=== PATIENT | male | born 1945 | race Caucasian/White ===

== ENCOUNTER → 2020-03-08 13:00 | Outpatient (BNVA) | payer MEDICARE, OTHER, SELFPAY | PROVIDERS: PCP Obstetrics & Gynecology Gynecologic Oncology; Referring Provider Obstetrics & Gynecology Gynecologic Oncology; Visit Provider Urology | DX: Z76.89 Persons encountering health services in other specified circumstances (principal) | CPT/HCPCS: Q3014 ==

== ENCOUNTER → 2021-06-13 08:26 | Outpatient (BNVA) | payer MEDICARE, OTHER, SELFPAY | PROVIDERS: PCP Obstetrics & Gynecology Gynecologic Oncology; Visit Provider Urology | DX: N40.1 Benign prostatic hyperplasia with lower urinary tract symptoms (principal); N13.8 Other obstructive and reflux uropathy; R97.20 Elevated prostate specific antigen [PSA] | CPT/HCPCS: Q3014 ==

== ENCOUNTER 2022-06-12 08:31 | Outpatient (REF) | payer MEDICARE, OTHER, SELFPAY ==
[2022-06-12 17:38] LABS: Urine Cytology See Pathology rpt
== END 2022-06-12 08:32 | disposition home or self-care (01) ==
LOC: HO.LAB 08:31
PROVIDERS: PCP Obstetrics & Gynecology Gynecologic Oncology; Visit Provider Urology
DX: N40.1 Benign prostatic hyperplasia with lower urinary tract symptoms (principal); N13.8 Other obstructive and reflux uropathy; R31.29 Other microscopic hematuria; R35.1 Nocturia; R97.20 Elevated prostate specific antigen [PSA]; Z79.899 Other long term (current) drug therapy
CPT/HCPCS: 51798; 88112; 99212

== ENCOUNTER 2023-06-15 08:32 | Outpatient (AMB) | payer MEDICARE, OTHER, SELFPAY ==
--- NOTE | 2023-06-15 08:40 | A.OFFVIS_ITS ---
Intake Intake Visit Reasons: 1Y PSA(set) Intake Note: Patient is Present for Follow Up PSA Urology Medication:Finasteride Antibiotic Allergies: None Blood Thinners: None PVR: 101 Allergies No Known Allergies Allergy (Verified 06/15/23 08:41) HPI HPI Comments History of Present Illness Details Franco is a pleasant male.? He is a patient of Dr. Garcia.? The seen for the following urologic conditions - abnormal SHEREEN PVR 100 cc Remains on finasteride Did notice some restriction to flow when reduced finasteride to Wednesday, Wednesday, Wednesday Will try daily PSA remains stable SHEREEN 2+ normal 12 month follow-up Retired device sales consultant. Discussed last trip to [place] on exercise. Has gone back to work part-time. Elevated PSA/Abnormal SHEREEN:? He presents for? further evaluation of elevated PSA ? - happy urinary improvement due to finasteride Current management is observation. Laboratory investigations include a free and total PSA evaluation October 1999 5.4, November 2014 5.8, December 2014 3.3, July 2015 5.5, 08/07 2.6, 02/07 0.8, 02/10 1.8, 06/14 1.6, 06/15 1.5, 06/16 1.6 Imaging investigations include? a transrectal ultrasound? No ?Indiviudalized Prostate Cancer Risk Calculator 5-10% high risk, Discussed use of 5AR to help differentiate prostate cancer from benign disease. He would like to try this and understands the small risk associated with a delay in diagnosis. A TRUS biopsy? has? not been performed Symptoms include incomplete emptying, weak stream, nocturia, x 2, and are improving. ? Overall symptoms are mild. ? His prior IPSS was moderate Therapeutic plan will be continued surveillance [facility] Medical History Prostate nodule History of elevated PSA Incomplete emptying of bladder Nocturia Lower urinary tract symptoms Surgical History History of surgery Social History Patient Tobacco Use Status: Former Tobacco user Review of Systems Const Denies chills and Denies fever(s) Card Reports no additional complaints and Denies syncope Resp Denies cough GI Denies abdominal pain and Denies heartburn Reports as per HPI and Denies change in libido Neuro Denies syncope Psych Denies change in libido Endo Denies change in libido Physical Exam Const General: cooperative, healthy appearing, comfortable and no acute distress Orientation/consciousness: patient oriented x3 HEENT Face and sinus: Yes normal facial exam Mouth: moist mucous membranes Neck Neck: Yes normal visual inspection, Yes full ROM and Yes trachea midline Chest Chest palpation & inspection: normal inspection of the chest Resp Effort & Inspection: normal respiratory effort, able to speak in complete sentences and no respiratory distress GI Inspection: Yes normal to inspection Back/Spine/Pelvis Cervical Spine: normal cervical lordosis Thoracic/Lumbar Spine: thoracic and lumbar spine normal to inspection Skin General skin exam: no rashes or lesions noted Neuro General: patient oriented x3, gait normal, tone normal and moves all extremities Extrem General: Yes normal to inspection and Yes capillary refill normal Office Procedures Post Void Residual Post Residual Void Post Void Residual (PVR): 101 [id number] Void Residual by ultrasound Assessment & Plan Assessment & Plan (1) Elevated PSA: Code(s): R97.20 - Elevated prostate specific antigen [PSA] (2) BPH w urinary obs/LUTS: Code(s): N40.1 - Benign prostatic hyperplasia with lower urinary tract symptoms; N13.8 - Other obstructive and reflux uropathy (3) Nocturia more than twice per night: Code(s): R35.1 - Nocturia Plan Twelve month follow-up PSA Orders: Orders AMB Post Void Residual by ultrasound Today N13.8 - Other obstructive and reflux uropathy, N40.1 - Benign prostatic hyperplasia with lower urinary tract symptoms Prostate Specific Antigen 364 Days N13.8 - Other obstructive and reflux uropathy, N40.1 - Benign prostatic hyperplasia with lower urinary tract symptoms Patient Instructions: Imaging studies, laboratory and physical exam results were discussed and reviewed in detail. No major barriers to patient understanding were identified. An opportunity to ask questions regarding the treatment plan was provided. All questions were answered. The patient expressed understanding and agreement with the above treatment plan. The patient is aware they should contact our office by phone for worsening of their current condition or the appearance of new urologic symptoms. Compliance is encouraged with any medications and followup testing that is ordered. It is a privilege to participate in the urologic care of your patient. If you have any questions or concerns regarding treatment for the above conditions, or other urologic issues, please do not hesitate to contact me. The office telephone contact is [phone]. This note is constructed using voice recognition software. While every effort has been made to ensure accuracy insole rasper errors may have been included. Yours sincerely, Dr Jhon Curiel MD, LES [facility] - Urology Providers of Expert, Compassionate Care for the Genitourinary System Coding Level of Care Code Est Pt Level 4 (79384) Diagnoses Elevated PSA R97.20 BPH w urinary obs/LUTS N40.1; N13.8 Nocturia more than twice per night R35.1 CPT Codes Post Residual Void - PVR CPT Code: 05636-[id number] Void Residual by ultrasound ([id number])
== END 2023-06-15 09:01 | disposition home or self-care (01) ==
PROVIDERS: Visit Provider Urology
DX: R97.20 Elevated prostate specific antigen [PSA] (principal); N40.1 Benign prostatic hyperplasia with lower urinary tract symptoms; N13.8 Other obstructive and reflux uropathy; R35.1 Nocturia
CPT/HCPCS: 99213

== ENCOUNTER → 2023-06-15 08:32 | Outpatient (BNVA) | payer MEDICARE, OTHER, SELFPAY | PROVIDERS: Visit Provider Urology | DX: R97.20 Elevated prostate specific antigen [PSA] (principal); N40.1 Benign prostatic hyperplasia with lower urinary tract symptoms; N13.8 Other obstructive and reflux uropathy; R35.1 Nocturia | CPT/HCPCS: 51798; 99212 ==